=== PATIENT | male | born 1990 | race Hispanic/Latino ===

== ENCOUNTER 2025-02-07 15:53 | Emergency (ER) | payer SELFPAY ==
[~2025-02-07] VITALS: Ht 165.1 cm; Wt 95.3 kg
[2025-02-07] MEDS: ketOROlac 30MG VIAL (30MG/ML) IM ONE (16:28)
--- NOTE | 2025-02-07 16:50 | HMCIMG ---
ULTRASOUND OF THE TESTICLES ULTRASOUND ABD VASCULAR LIMITED INDICATION: Left testicular pain COMPARISON: None FINDINGS: The right testicle measures 4.0 x 2.1 x 3.0 cm. It is normal in echogenicity without mass. No hydrocele or varicocele demonstrated. Right epididymal head measures 0.5 cm. 0.3 cm simple cyst within the right epididymal head. The left testicle measures 3.0 x 2.0 x 2.5 cm. It is normal in echogenicity without mass. No hydrocele or varicocele demonstrated. Left epididymal head measures 0.5 cm. Color Doppler flow is normal throughout the both testicles.Spectral Doppler analysis demonstrates a normal waveform pattern in regards to both testicles. No left groin abnormality demonstrated. IMPRESSION: 0.3 cm simple right epididymal head cyst, without any left testicular or epididymal abnormality.
--- NOTE | 2025-02-07 17:01 | ERN ---
General Chief Complaint: Testicular Injury/Pain Stated Complaint: BACK PAIN DUE TO INJURY AT WORK Time Seen by MD: 15:56 Source: patient History of Present Illness Initial Comments PATIENT IS A 34-YEAR-OLD MALE COMING IN TO BE EVALUATED FOR LEFT TESTICULAR PAIN. PATIENT STATES THAT WHILE LIFTING AN OBJECT STATES THAT THE WIND BLEW THE OBJECT HE FELT A STRAIN IN HIS LEFT TESTICLE. PAIN IS LOCALIZED Allergies: Coded Allergies: No Known Drug Allergies (Unverified Allergy, Unknown, 02/07/25) Past Medical History Past Medical History: No Pertinent History Past Surgical History: None ROS Dictation CONSTITUTIONAL: NO CHILLS, NO FEVER, NO WEAKNESS, NO DIAPHORESIS, NO MALAISE. HEAD/FACE: NO SIGNS OF TRAUMA. EENT: NO EYE PAIN, NO BLURRED VISION, NO TEARING, NO DOUBLE VISION, NO EAR PAIN, NO EAR DISCHARGE, NO NOSE PAIN, NO NASAL CONGESTION, NO THROAT PAIN, NO THROAT SWELLING, NO MOUTH PAIN. RESPIRATORY: NO COUGH, NO ORTHOPNEA, NO SOB, NO STRIDOR, NO WHEEZING. CARDIOVASCULAR: NO CHEST PAIN, NO EDEMA, NO PALPITATIONS, NO SYNCOPE. GASTROINTESTINAL/ABDOMINAL: NO ABDOMINAL PAIN, NO CONSTIPATION, NO DIARRHEA, NO NAUSEA, NO VOMITING. GENITOURINARY: NO ABNORMAL DISCHARGE, NO DYSURIA, NO FREQUENT URINATION, NO HEMATURIA. NO COMPLAINTS OF PAIN IN THE GENITALS. MUSCULOSKELETAL: NO BACK PAIN, NO GOUT, NO JOINT PAIN, NO JOINT SWELLING, NO MUSCLE PAIN, NO MUSCLE STIFFNESS, NO NECK PAIN. INTEGUMENTARY: NO CHANGE IN COLOR, NO CHANGE IN HAIR/NAILS, NO DRYNESS, NO LESION, NO LUMPS, NO RASH. NEUROLOGICAL/PSYCH: NO ANXIETY, NOT DEPRESSED, NO EMOTIONAL PROBLEM, NO HEADACHE, NO NUMBNESS, NO PRE-EXISTING DEFICIT, NO HISTORY OF SEIZURES, NO TREMORS, NO WEAKNESS. HEMATOLOGIC/LYMPHATIC: NOT ANEMIC, NO HISTORY OF BLOOD CLOTS, NO APPARENT BLEEDING, NO BRUISING, GLANDS NOT SWOLLEN. ALL SYSTEMS NEGATIVE, EXCEPT NOTED. Physical Exam Physical Exam Dictation VITAL SIGNS: REVIEWED. GENERAL APPEARANCE: ALERT, ORIENTED X3, NO ACUTE DISTRESS, OBESE. HEAD AND FACE: NON-TRAUMATIC. EYES: PERRL, PINK CONJUNCTIVAS, EYELID NO TRAUMA, ANTERIOR CHAMBER CLEAR. EARS: PINNAS INTACT AND NO SIGNS OF TRAUMA OR ERYTHEMA. EAR CANALS CLEAR AND NO DISCHARGE. TMS NO ERYTHEMA. NOSE: NO DISCHARGE, NO BLEEDING. OROPHARYNX: MOUTH NORMAL, TEETH NO CARIES, TONGUE PINK. PHARYNX CLEAR, NO ERYTHEMA. TONSILS NO EXUDATES, NO ABSCESSES NOTED. MUCOUS MEMBRANE MOIST. NECK: SUPPLE, NON-TENDER, NO THYROMEGALY, NO MASSES, NO JVD, NO BRUITS. BREAST: DEFERRED. CHEST: NO TENDERNESS, NO CREPITUS, NO PARADOXICAL MOVEMENT, NO RETRACTIONS. LUNGS: CLEAR, WELL-VENTILATED, SYMMETRIC, NO RALES, NO WHEEZING, NO RHONCHI, NO STRIDOR, GOOD BREATH SOUNDS BILATERALLY. HEART: REGULAR RATE, REGULAR RHYTHM, NO MURMUR, NO GALLOPS. VASCULAR: NO PERIPHERAL EDEMA. ABDOMEN: SOFT, POSITIVE BOWEL SOUNDS, NONDISTENDED, NO GUARDING, NONTENDER, NO REBOUND, NO MASSES NO HEPATOMEGALY, NO SPLENOMEGALY, NO LIM'S SIGN, NO HERNIAS. RECTAL: DEFERRED. GENITAL: LEFT TESTICULAR PAIN ON PALPATION CREMASTERIC REFLEX INTACT CHAPERONED BY NURSE EUFEMIA NEUROLOGICAL: NORMAL SPEECH, GROSS MOTOR FUNCTION INTACT, GROSS SENSORY FUNCTION INTACT. MUSCULOSKELETAL: NECK NONTENDER, FULL RANGE OF MOTION, BACK NONTENDER, FULL RANGE OF MOTION. EXTREMITIES: NONTENDER, FULL RANGE OF MOTION. SKIN: COLOR PINK, DRY, NO TURGOR, NO RASH, NO LACERATIONS, NO ABRASIONS, NO CONTUSIONS. LYMPHATICS: DEFERRED. MDM MDM: DIFFERENTIAL DIAGNOSIS: LEFT TESTICULAR PAIN, TESTICULAR STRAIN, PATIENT IS A 34-YEAR-OLD MALE COMING TO BE EVALUATED FOR LEFT TESTICULAR PAIN. PATIENT STATES HE WAS DOING SOME PHYSICAL ACTIVITY WHICH STATES THAT AFTER THAT HE STARTED HAVING LEFT TESTICULAR PAIN. ULTRASOUND DID NOT DISCLOSE ACUTE FINDING. PATIENT WILL BE DISCHARGED WITH A DIAGNOSIS OF TESTICULAR STRAIN. ED Course Orders Procedure Category Date Status Time Us Scrotum & Contents US 02/07/25 Resulted 16:18 Ketorolac PHA 02/07/25 Complete Tromethamine 30mg/Ml 16:30 Current Medications Medications (Trade) Dose Ordered Sig/[place] Route PRN Reason Start Time Stop Time Status Last Admin Dose Admin Ketorolac Tromethamine (toRADol) 30 mg ONCE ONCE IM 02/07/25 16:30 02/07/25 16:31 DC 02/07/25 16:28 Vital Signs Date Time Temp Pulse Resp B/P (MAP) Pulse Ox O2 Delivery O2 Flow Rate FiO2 02/07/25 15:56 98.4 84 22 155/94 96 Room Air DX & DISP Disposition: Discharge Departure Impression: Primary Impression: Testicular cyst Condition: Stable Scripts Naproxen (Naproxen) 500 Mg Tablet 1 TAB PO BID for pain for 7 Days, #14 TAB 0 Refills Prov: SHRUTHI JIMENEZ MD 02/07/25 Additional Instructions: FOLLOW-UP WITH PRIMARY CARE PROVIDER IN 1 TO 2 DAYS. TAKE MEDICATIONS DIRECTED HERE IN THE EMERGENCY ROOM. OKAY TO CONTINUE HOME MEDICATIONS UNLESS OTHERWISE DISCUSSED DURING YOUR VISIT IN THE EMERGENCY ROOM TODAY. RETURN TO YOUR NEAREST EMERGENCY ROOM IF SYMPTOMS WORSEN OR IF THERE IS NO IMPROVEMENT. CALL 911 IF YOU NEED IMMEDIATE ASSISTANCE. TAKE TYLENOL [id number] NEEDED AND IF NO CONTRAINDICATIONS ARE PRESENT. INCREASE ORAL HYDRATION. A WOUND CULTURE OR URINE CULTURE WAS ORDERED HERE IN THE EMERGENCY ROOM DEPARTMENT PLEASE FOLLOW-UP WITH PRIMARY CARE PROVIDER AND ADVISE THEM TO GET REPEAT PORTS FROM OUR FACILITY. IF YOU HAD ANY SHRADDHA WRAP/SPLINTS THAT WERE APPLIED HERE, PLEASE DO NOT REMOVE THEM UNTIL YOU SEE YOUR PRIMARY CARE OR SPECIALTY. REFERRALS: Referrals: SELF,REFERRAL (PCP) JESUS MANUEL CLEMENS MD Time of Disposition: 17:32 SHRUTHI JIMENEZ MD Feb 07, 2025 17:01
[2025-02-07] MEDS ORDERED: NAPR-1194 PO (17:33)
[2025-02-07 18:10] VITALS: BP 138/82; PULSE 80; RESP 20; TEMP 98.4; O2SAT 97
== END 2025-02-07 18:12 | disposition home or self-care (01) ==
LOC: EDH 15:53
DX: N44.2 Benign cyst of testis (principal)
CPT/HCPCS: 99285; 76870; 96372; J1885